=== PATIENT | male | born 1970 | race Caucasian/White ===

== ENCOUNTER → 2016-08-01 | Outpatient (REF) ==
[~2016-08-01] MED LIST: CIALIS5 MG PO; PREVACID 15MG15 M1 PO; SYNTHROID0.075 MG/T PO; TRICOR 48MG48 MG PO
[2016-08-01 13:24] LABS: THYROID STIMULATING HORMONE 2.95 uIU/mL (0.465-4.680)
[2016-08-01 13:59] LABS: PSA-TOTAL 0.31 ng/mL (0-4)
== END ==
LOC: ZLAB.WCH 12:02
PROVIDERS: Internal Medicine
DX: Z01.89 Encounter for other specified special examinations (principal)
CPT/HCPCS: G0103

== ENCOUNTER → 2017-03-23 | Outpatient (CLI) | payer BC | LOC: COL.RAD 12:03 | DX: N50.3 Cyst of epididymis (principal) ==

== ENCOUNTER → 2017-03-23 | Outpatient (REF) | LOC: ZLAB.WCH 15:34 | DX: Z01.89 Encounter for other specified special examinations (principal) ==

== ENCOUNTER 2017-11-19 10:54 | Outpatient (RCR) | payer BC | END 2018-02-17 | disposition home or self-care (01) | LOC: MKS.ESL.PT | DX: M51.36 Other intervertebral disc degeneration, lumbar region (principal) | CPT/HCPCS: G0283-GP ==

== ENCOUNTER 2019-04-08 11:33 | Emergency (ER) | payer BC ==
[~2019-04-08] VITALS: Ht 182.9 cm; Wt 127.3 kg
[2019-04-08 11:39] VITALS: TEMP 97.6
[2019-04-08 12:33] LABS: BASO % 0.5 % (0.0-2.0); EOS # 0.1 (0.0-0.7); EOS % 1.2 % (0-4.0); GRAN # 4.1 (1.4-6.5); GRAN % 61.8 % (42.2-75.2); HEMATOCRIT 45.1 % (42.0-52.0); HEMOGLOBIN 14.9 g/dl (13.5-18.0); LYMPH # 1.6 (1.2-3.4); LYMPH % 24.5 % (20.0-51.0); MEAN CELL VOLUME 90 fl (80.0-100.0); MEAN CORPUSCULAR HEMOGLOBIN 30 pg (27.0-31.0); MEAN CORPUSCULAR HGB CONC 33 g/dl (33.0-37.0); MEAN PLATELET VOLUME 10.9 fl (7.4-10.4); MONO # 0.8 (0.1-0.6); MONO % 11.4 % (1.7-9.3); PLATELET COUNT 200 K/mm3 (130-400); RED BLOOD COUNT 5.01 M/mm3 (4.20-5.60); REDCELL DISTRIBUTION WIDTH-CV 13.1 % (11.5-14.5)
[2019-04-08] MEDS ORDERED: PRILOSEC 20MG20 MG PO (12:33)
[2019-04-08 12:37] LABS: PROTHROMBIN TIME 12.1 SECONDS (9.7-12.8)
[2019-04-08 12:44] LABS: ALANINE AMINOTRANSFERASE 58 U/L (21-72); ALBUMIN 4.7 gm/dL (3.5-5.0); ALKALINE PHOSPHATASE 42 U/L (50-136); ANION GAP 10 mmol/L (7-16); AST,SGOT 31 U/L (15-37); BILIRUBIN,TOTAL 0.4 mg/dL (0.0-1.0); BLOOD UREA NITROGEN 26 mg/dL (9-20); CALCIUM 9.2 mg/dL (8.4-10.2); CARBON DIOXIDE 28 mmol/L (22-30); CHLORIDE 105 mmol/L (98-107); CREATININE, serum 1.22 (0.66-1.25); GLUCOSE 107 mg/dL (74-106); POTASSIUM 4.1 mmol/L (3.4-5.0); SODIUM 143 mmol/L (137-145); TOTAL PROTEIN 7.4 gm/dL (6.4-8.2)
[2019-04-08 12:58] LABS: TROPONIN-I < 0.012 ng/mL (0.000-0.035)
[2019-04-08 13:01] LABS: PROLACTIN 16.8 ng/mL (3.7-17.9)
[2019-04-08 16:13] VITALS: BP 138/87; PULSE 60
== END 2019-04-08 16:23 | disposition home or self-care (01) ==
LOC: COL.ER 11:33
PROVIDERS: Emergency Medicine
DX: R55 Syncope and collapse (principal); E03.9 Hypothyroidism, unspecified; K21.9 Gastro-esophageal reflux disease without esophagitis
CPT/HCPCS: J2060; J7030

== ENCOUNTER 2020-11-01 12:04 | Emergency (ER) | payer BC ==
[~2020-11-01] VITALS: Ht 182.9 cm; Wt 125.0 kg
[~2020-11-01 12:04] MED LIST changes: +PRILOSEC 20MG20 MG PO
[2020-11-01 12:14] VITALS: TEMP 98.5
[2020-11-01] MEDS ORDERED: PHENERGAN 25 TA25 MG PO (13:35)
[2020-11-01 14:00] VITALS: BP 138/80; PULSE 58
== END 2020-11-01 14:00 | disposition home or self-care (01) ==
LOC: COL.ER 12:04
DX: G89.18 Other acute postprocedural pain (principal); Z98.890 Other specified postprocedural states
CPT/HCPCS: J1170; J2550